=== PATIENT | female | born 1975 | race Caucasian/White ===

== ENCOUNTER 2016-10-05 11:44 | Outpatient (CLI) | payer OTHER | END 2016-10-05 11:45 | disposition home or self-care (01) | DX: Z12.31 Encounter for screening mammogram for malignant neoplasm of breast (principal) ==

== ENCOUNTER 2016-10-19 15:16 | Outpatient (CLI) | payer OTHER | END 2016-10-19 15:17 | disposition home or self-care (01) | DX: N92.0 Excessive and frequent menstruation with regular cycle (principal) ==

== ENCOUNTER 2016-10-22 16:34 | Outpatient (CLI) | payer OTHER ==
[2016-10-22] MEDS ORDERED: IOPAMIDOL-300 100 ML VIAL IVP ONE (18:47)
[2016-10-22] MEDS ORDERED: IOPAMIDOL-300 50 ML VIAL PO ONE (18:47)
== END 2016-10-22 16:35 | disposition home or self-care (01) ==
DX: K58.9 Irritable bowel syndrome, unspecified (principal); R91.1 Solitary pulmonary nodule
CPT/HCPCS: 74177; Q9967

== ENCOUNTER 2017-03-10 16:19 | Outpatient (CLI) | payer OTHER ==
--- NOTE | 2017-03-10 21:16 | MRI Report ---
EXAM: LEFT KNEE MRI WITHOUT CONTRAST EXAM DATE: 03/10/2017 05:14 PM. CLINICAL HISTORY: KNEE PAIN,LEFT. Pressure and difficulty bending left knee, stiffness x 8 month; not improving with time. COMPARISON: None. TECHNIQUE: Multiplanar, multisequence T1-weighted and fluid-sensitive sequences of the knee without c ontrast. Other: None. FINDINGS: Bones: No fractures or subluxations. No marrow edema. No bone lesions. Articular Cartilage: Mild chondromalacia patellae with grade 1-2 degenerative signal mainly in the me dial side. Medial Meniscus: The medial meniscus is intact. Lateral Meniscus: The lateral meniscus is intact. Cruciate Ligaments: The anterior and posterior cruciate ligaments are intact. Collateral Ligaments: The medial collateral and lateral collateral ligamentous structures are intact. Tendons: The quadriceps, patellar, semimembranosus, and popliteus tendons are unremarkable. Musculature: No edema or fatty atrophy. Other: No effusion. No popliteal cyst. No loose bodies. The medial and lateral retinacula, patellofe moral ligaments and iliotibial band are intact. No bursitis. The subcutaneous tissues and fat pads ar e unremarkable. IMPRESSION: 1. Mild chondromalacia patellae. 2. No other MRI abnormalities in the knee. No meniscal or ligamentous tear. [facility] MUSCULOSKELETAL RADIOLOGY SECTION Referring Provider Line: [phone] SITE ID: [id number]
== END 2017-03-10 16:20 | disposition home or self-care (01) ==
LOC: DI 16:19
PROVIDERS: ATTEND Physician Assistant Medical
DX: M25.562 Pain in left knee (principal); M22.42 Chondromalacia patellae, left knee

== ENCOUNTER 2017-05-03 07:25 | Outpatient (CLI) | payer OTHER ==
[2017-05-03 12:39] LABS: BASOPHILS % (AUTO) 0.9 %; EOSINOPHILS # (AUTO) 0.1 10^3/uL (0.0-0.7); EOSINOPHILS % (AUTO) 4.4 %; HGB - HEMOGLOBIN 12.5 g/dL (12.0-16.0); LYMPHOCYTES # (AUTO) 0.8 10^3/uL (1.5-3.5); LYMPHOCYTES % (AUTO) 24.4 %; MEAN CORPUSCULAR HEMOGLOBIN 30.4 pg (27.0-31.0); MEAN CORPUSCULAR HGB CONC 33.9 g/dL (32.0-36.0); MEAN CORPUSCULAR VOLUME 89.8 fL (81.0-99.0); MEAN PLATELET VOLUME 8.7 fL (7.9-10.8); MONOCYTES # (AUTO) 0.3 10^3/uL (0.0-1.0); MONOCYTES % (AUTO) 9.2 %; NEUTROPHILS % (AUTO) 61.1 %; RED BLOOD COUNT 4.12 10^6/uL (4.20-5.40); RED CELL DISTRIBUTION WIDTH 13.3 % (12.0-15.0); UNCORRECTED WHITE BLOOD COUNT 3.3 x10^3/uL; WHITE BLOOD COUNT 3.3 x10^3/uL (4.8-10.8)
[2017-05-03 13:04] LABS: THYROID STIMULATING HORMONE 1.27 uIU/mL (0.34-5.60)
[2017-05-03 13:10] LABS: FERRITIN 9.5 ng/mL (11.0-306.8)
[2017-05-03 14:18] LABS: ALBUMIN/GLOBULIN RATIO 1.2 (1.0-2.2); BILIRUBIN,TOTAL 0.6 mg/dL (0.2-1.0); BUN - BLOOD UREA NITROGEN 19 mg/dL (6-20); CARBON DIOXIDE - CO2 26 mmol/L (21-32); CHLORIDE 103 mmol/L (101-111); CHOL/HDL RATIO 5.9 (<4.4); CHOLESTEROL 306 mg/dL; CREATININE 0.8 mg/dL (0.4-1.0); GFR - MDRD 78 (>89); GLUCOSE 81 mg/dL (70-100); HDL CHOLESTEROL 52 mg/dL; LDL/HDL RATIO 4.5 (<4.4); POTASSIUM 3.8 mmol/L (3.5-5.0); SODIUM 138 mmol/L (135-145); TOTAL PROTEIN 7.4 g/dL (6.7-8.2); TRIGLYCERIDES 110 mg/dL; VLDL CHOLESTEROL 22 mg/dL
== END 2017-05-03 07:26 ==
LOC: LAB.WCP 07:25
PROVIDERS: ATTEND Physician Assistant Medical
DX: Z00.00 Encounter for general adult medical examination without abnormal findings (principal); D64.9 Anemia, unspecified
CPT/HCPCS: 36415; 80050; 80061; 82728

== ENCOUNTER 2017-10-20 11:30 | Outpatient (CLI) | payer OTHER ==
[2017-10-20 19:09] LABS: BASOPHILS % (AUTO) 1.1 %; EOSINOPHILS # (AUTO) 0.1 10^3/uL (0.0-0.7); HGB - HEMOGLOBIN 12.7 g/dL (12.0-16.0); LYMPHOCYTES % (AUTO) 25.9 %; MEAN CORPUSCULAR HEMOGLOBIN 29.9 pg (27.0-31.0); MEAN CORPUSCULAR HGB CONC 33.1 g/dL (32.0-36.0); MEAN CORPUSCULAR VOLUME 90.4 fL (81.0-99.0); MEAN PLATELET VOLUME 9.2 fL (7.9-10.8); MONOCYTES # (AUTO) 0.4 10^3/uL (0.0-1.0); MONOCYTES % (AUTO) 11.3 %; NEUTROPHILS # (AUTO) 2.4 10^3/uL (1.5-6.6); NEUTROPHILS % (AUTO) 59.7 %; PLT - PLATELET COUNT 213 10^3/uL (130-450); RED BLOOD COUNT 4.24 10^6/uL (4.20-5.40); RED CELL DISTRIBUTION WIDTH 13.5 % (12.0-15.0)
[2017-10-20 19:35] LABS: THYROID STIMULATING HORMONE 1.73 uIU/mL (0.34-5.60)
[2017-10-20 19:40] LABS: FERRITIN 10.3 ng/mL (11.0-306.8)
== END 2017-10-20 11:31 | disposition home or self-care (01) ==
LOC: LAB.WCP 11:30
PROVIDERS: ATTEND Physician Assistant Medical
DX: D64.9 Anemia, unspecified (principal); R53.83 Other fatigue
CPT/HCPCS: 36415; 82728; 84443; 85025

== ENCOUNTER 2017-10-20 11:55 | Outpatient (CLI) | payer OTHER ==
--- NOTE | 2017-10-21 11:59 | Mammography Report ---
DIGITAL SCREENING MAMMOGRAM: 10/20/2017 CLINICAL INDICATION: A 42-year-old with history of late childbearing, for screening. COMPARISON: 09/2016, 09/2015, 08/2014, 05/2013. TECHNIQUE: Routine CC and MLO projections were obtained of the breasts. Bilateral laterally exaggerated craniocaudal views. FINDINGS: Parenchymal tissue within both breasts is heterogeneously dense, which may lower the sensitivity of mammography; however, there are no dominant masses, suspicious microcalcifications, or secondary signs of malignancy. In comparison to the previous studies, there are no significant changes. ASSESSMENT: NO MAMMOGRAPHIC EVIDENCE OF MALIGNANCY. NO SIGNIFICANT INTERVAL CHANGES. RECOMMENDATION: Screening mammography is recommended annually. BIRADS category 1 - negative. STANDARD QUALIFYING STATEMENTS: 1. This examination was reviewed with the aid of Computed-Aided Detection (CAD). 2. A negative or benign imaging report should not delay biopsy if clinically suspicious findings are present. Consider surgical consultation if warranted. More than 5% of cancers are not identified by imaging. 3. Dense breasts may obscure an underlying neoplasm. TD: 10/21/2017 11:58
== END 2017-10-20 11:56 | disposition home or self-care (01) ==
LOC: DI.N 11:55
PROVIDERS: ATTEND Physician Assistant Medical
DX: Z12.31 Encounter for screening mammogram for malignant neoplasm of breast (principal)
CPT/HCPCS: 77067

== ENCOUNTER 2018-04-19 08:52 | Outpatient (CLI) | payer OTHER ==
[2018-04-19 12:52] LABS: BASOPHILS % (AUTO) 0.7 %; EOSINOPHILS # (AUTO) 0.1 10^3/uL (0.0-0.7); EOSINOPHILS % (AUTO) 2.1 %; HGB - HEMOGLOBIN 13.3 g/dL (12.0-16.0); LYMPHOCYTES # (AUTO) 0.7 10^3/uL (1.5-3.5); LYMPHOCYTES % (AUTO) 19.9 %; MEAN CORPUSCULAR HEMOGLOBIN 30.6 pg (27.0-31.0); MEAN CORPUSCULAR HGB CONC 33.9 g/dL (32.0-36.0); MEAN CORPUSCULAR VOLUME 90.4 fL (81.0-99.0); MEAN PLATELET VOLUME 8.7 fL (7.9-10.8); MONOCYTES # (AUTO) 0.3 10^3/uL (0.0-1.0); MONOCYTES % (AUTO) 8.6 %; NEUTROPHILS # (AUTO) 2.5 10^3/uL (1.5-6.6); NEUTROPHILS % (AUTO) 68.7 %; PLT - PLATELET COUNT 214 10^3/uL (130-450); RED BLOOD COUNT 4.35 10^6/uL (4.20-5.40); RED CELL DISTRIBUTION WIDTH 13.1 % (12.0-15.0); WHITE BLOOD COUNT 3.7 x10^3/uL (4.8-10.8)
[2018-04-19 13:23] LABS: ALBUMIN 4.4 g/dL (3.2-5.5); ALBUMIN/GLOBULIN RATIO 1.3 (1.0-2.2); ALKALINE PHOSPHATASE 53 IU/L (42-121); ALT ALANINE AMINOTRANSFERASE 15 IU/L (10-60); AST ASPARTATE AMINOTRANSFERASE 18 IU/L (10-42); BILIRUBIN,TOTAL 0.8 mg/dL (0.2-1.0); BUN - BLOOD UREA NITROGEN 15 mg/dL (6-20); CALCIUM 8.9 mg/dL (8.5-10.3); CARBON DIOXIDE - CO2 25 mmol/L (21-32); CHLORIDE 103 mmol/L (101-111); CHOL/HDL RATIO 4.9 (<4.4); CHOLESTEROL 277 mg/dL; CREATININE 0.7 mg/dL (0.4-1.0); GFR - MDRD 90 (>89); GLUCOSE 80 mg/dL (70-100); HDL CHOLESTEROL 57 mg/dL; LDL CHOLESTEROL,CALCULATED 198 mg/dL; LDL/HDL RATIO 3.5 (<4.4); SODIUM 136 mmol/L (135-145); TOTAL PROTEIN 7.9 g/dL (6.7-8.2); VLDL CHOLESTEROL 22 mg/dL
[2018-04-19 13:26] LABS: THYROID STIMULATING HORMONE 1.18 uIU/mL (0.34-5.60)
[2018-04-19 13:31] LABS: FERRITIN 11.1 ng/mL (11.0-306.8)
== END 2018-04-19 08:53 ==
LOC: LAB.WCP 08:52
PROVIDERS: ATTEND Physician Assistant Medical
DX: Z00.00 Encounter for general adult medical examination without abnormal findings (principal); E78.5 Hyperlipidemia, unspecified; D64.9 Anemia, unspecified
CPT/HCPCS: 36415; 80053; 80061; 82728; 83721; 84443; 85025

== ENCOUNTER 2018-06-26 09:40 | Outpatient (CLI) | payer OTHER ==
--- NOTE | 2018-06-26 13:42 | Ultrasound Report ---
Reason: MENORRHAGIA Procedure Date: 06/26/2018 Accession Number: [id number] / [id number] Procedure: US - Pelvic w/Transvaginal CPT Code: FULL RESULT: EXAM: PELVIC ULTRASOUND EXAM DATE: 06/26/2018 10:33 AM. CLINICAL HISTORY: Menorrhagia. COMPARISON: Pelvic w/transvaginal 10/19/2016 3:33 PM. TECHNIQUE: Realtime transabdominal pelvic scan performed to identify the uterus and adnexa and as an overview of other pelvic structures, followed by transvaginal scan to provide greater detail of the uterus and adnexa, with static image documentation. FINDINGS: Uterus: 10.3 x 4.7 x 5.4 cm, volume 136.7 cc. Anteverted position. Normal overall size and echotexture. Masses: Posterior 1.1 cm fibroid posterior right myometrium. Endometrium: 8 mm. Normal. Cervix: Unremarkable. Right Ovary: 2.1 x 1.6 x 2.4 cm, volume 4.2 cc. Normal echotexture. Left Ovary: 2.1 x 1.5 x 1.7 cm, volume 2.8 cc. Normal echotexture. Free Fluid: Trace. Other: None. IMPRESSION: 1. A 1 cm posterior right fundal fibroid. 2. Normal appearance to the endometrium. [facility]
== END 2018-06-26 09:41 | disposition home or self-care (01) ==
LOC: DI 09:40
PROVIDERS: ATTEND Physician Assistant Medical
DX: D25.9 Leiomyoma of uterus, unspecified (principal)
CPT/HCPCS: 76830; 76856

== ENCOUNTER 2018-10-23 08:00 | Outpatient (CLI) | payer OTHER | END 2018-10-23 23:59 | disposition home or self-care (01) | LOC: LAB.R 08:00 | PROVIDERS: ATTEND Family Medicine | DX: R19.7 Diarrhea, unspecified (principal) | CPT/HCPCS: 81599; 83630; 87045; 87046; 87177; 87209; 87329; 87493 ==

== ENCOUNTER 2018-11-10 08:57 | Outpatient (CLI) | payer OTHER ==
--- NOTE | 2018-11-10 10:33 | Mammography Report ---
Reason: SCREENING MAMMO Procedure Date: 11/10/2018 Accession Number: [id number] / [id number] Procedure: MGN - Screening Mammo Dig Bilat CPT Code: FULL RESULT: EXAM: Screening Mammo Dig Bilat DATE: 11/10/2018 9:43 AM CLINICAL HISTORY: Routine screening TECHNIQUE: (B) - Bilateral CC and MLO views were obtained. COMPARISON: 10/20/2017, 10/05/2016, 09/16/2015 and 08/21/2014 PARENCHYMAL PATTERN: (D) - The breasts demonstrate heterogeneously dense fibroglandular parenchyma bilaterally. FINDINGS: There is no significant interval change. There are no suspicious masses, calcifications, or areas of distortion. IMPRESSION: Negative examination. BI-RADS category 1. RECOMMENDATION: (ANNUAL) - Recommend routine annual screening mammography. BI-RADS CATEGORY: (1) - Negative. STANDARD QUALIFYING STATEMENTS: 1. This examination was not reviewed with the aid of Computer-Aided Detection (CAD). 2. A negative or benign imaging report should not preclude biopsy if clinically suspicious findings are present. 3. Dense breasts may obscure an underlying neoplasm. 4. This examination was reviewed without the aid of 3D breast imaging (tomosynthesis).
== END 2018-11-10 08:58 | disposition home or self-care (01) ==
LOC: DI.N 08:57
DX: Z12.31 Encounter for screening mammogram for malignant neoplasm of breast (principal)
CPT/HCPCS: 77067

== ENCOUNTER 2019-04-10 08:39 | Outpatient (CLI) | payer OTHER ==
[2019-04-10] MEDS ORDERED: IOVERSOL 320 100 ML VIAL IVP ONE ×2 (09:01→10:16)
--- NOTE | 2019-04-10 09:51 | CT Report ---
Reason: PULMONARY NODULE Procedure Date: 04/10/2019 Accession Number: [id number] / [id number] Procedure: CT - CHEST W CPT Code: FULL RESULT: EXAM: CT CHEST EXAM DATE: 04/10/2019 09:13 AM. CLINICAL HISTORY: Follow-up right lower lobe pulmonary nodule. COMPARISONS: ABDOMEN/PELVIS W/ 10/22/2016 6:39 PM. TECHNIQUE: Routine helical CT imaging was performed through the chest. IV contrast: None. Reconstructions: Coronal and sagittal. In accordance with CT protocol optimization, one or more of the following dose reduction techniques were utilized for this exam: automated exposure control, adjustment of mA and/or KV based on patient size, or use of iterative reconstructive technique. FINDINGS: Lungs/Pleura: On image 180, series 4 there is an approximate 3 mm diameter lateral segment right middle lobe pulmonary nodule that was not included in the [id number] of the 2017 examination. There has been no change in the 2 mm diameter lateral right lower lobe pulmonary nodule (image 197, series 4); no further follow-up is required for this finding. There is a 5 mm diameter benign-appearing pleural-based noncalcified nodule in the medial basilar left lower lobe that is unchanged compared to 2017. Mediastinum: Normal. No adenopathy or masses. The heart and great vessels are normal. Bones: Unremarkable. Visualized Abdomen: Unremarkable. Other: None. IMPRESSION: 1. No suspicious abnormality. 2. There is a benign-appearing 3 mm maximal diameter lateral segment right middle lobe nodule as described above. 3. No change in 2 mm diameter right lower lobe pulmonary nodule for which no further follow-up is required as per Fleischner Society guidelines. 4. There has been no change in the benign-appearing approximate 5 mm diameter pleural-based medial left lower lobe pulmonary nodule for which no further follow-up is required as per Fleischner Society guidelines. [facility]
== END 2019-04-10 08:40 | disposition home or self-care (01) ==
LOC: DI 08:39
PROVIDERS: ATTEND Physician Assistant Medical
DX: J98.4 Other disorders of lung (principal); R91.8 Other nonspecific abnormal finding of lung field
CPT/HCPCS: 71260; Q9967

== ENCOUNTER 2020-05-16 10:37 | Outpatient (CLI) | payer OTHER ==
--- NOTE | 2020-05-19 16:02 | Mammography Report ---
BILATERAL DIGITAL SCREENING MAMMOGRAM 3D/2D: 05/16/2020 CLINICAL: Routine screening. Comparison is made to exams dated: 01/10/2019 mammogram, 10/20/2017 mammogram, 10/05/2016 mammogram, 09/15 mammogram, 08/21/2014 mammogram, and 05/29/2013 mammogram - [facility]. The t issue of both breasts is heterogeneously dense. This may lower the sensitivity of mammography. No significant masses, calcifications, or other findings are seen in either breast. There has been no significant interval change. IMPRESSION: NEGATIVE There is no mammographic evidence of malignancy. A 1 year screening mammogram is recommended. This exam was interpreted at Station ID: [id number]. NOTE: For mammograms, a report in lay terms will be sent to the patient. Approximately 15% of breast malignancies will not be visualized mammographically. In the management of a palpable breast mass, a negative mammogram must not discourage biopsy of a clinically suspicious lesion. Electronically Signed By: Jonathan Caban M.D. ddp/penrad:05/16/2020 14:34:59 ACR BI-RADS Category 1: Negative 3341F PARENCHYMAL PATTERN: (D) - The breast(s) demonstrate(s) heterogeneously dense fibroglandular tom correa. BI-RADS CATEGORY: (1) - 1 RECOMMENDATION: (ANNUAL) - Recommend routine annual screening mammography. [id number] 1 year screening LATERALITY: (B)
== END 2020-05-16 10:38 | disposition home or self-care (01) ==
LOC: DI.N 10:37
DX: Z12.31 Encounter for screening mammogram for malignant neoplasm of breast (principal)
CPT/HCPCS: 77063; 77067

== ENCOUNTER 2020-05-27 08:15 | Outpatient (CLI) | payer OTHER ==
[2020-05-27] MEDS ORDERED: IOVERSOL 320 100 ML VIAL IVP ONE ×2 (08:27→11:57)
--- NOTE | 2020-05-27 12:03 | CT Report ---
PROCEDURE: CHEST W INDICATIONS: PULMONARY NODULE CONTRAST: IV CONTRAST: Optiray 320 ml: 100 PO CONTRAST: *NO PO CONTRAST TECHNIQUE: After the administration of intravenous contrast, 5 mm thick sections acquired from the pulmonary api dev to the posterior costophrenic angles. 7 mm thick coronal MIP reformats were acquired. For radia tion dose reduction, the following was used: automated exposure control, adjustment of mA and/or kV according to patient size. COMPARISON: CT chest 04/10/2019, CT abdomen pelvis 10/22/2016 FINDINGS: Image quality: Excellent. Lungs and pleura: No acute air space opacities. No pleural effusions or pneumothorax. Central and peripheral airways are patent and normal in caliber. Previously identified nodules, are as follows: Right middle lobe 3 mm series 4 image 158, unchanged compared to 2019. Right lower lobe: 2 mm series 4 image 186, unchanged,compared to 2017 and 2019. Left lower lobe: 5 mm pleural-based medial left lower lobe nodule, series 4 image 202, unchanged comp ared to 2018 and 2016. No new nodules are identified. Mediastinum: Heart size is normal. No pericardial effusion. No mediastinal or hilar adenopathy by size criteria. Thoracic aorta and central pulmonary arteries are normal in size. Esophagus is margarette l in caliber. No hiatal hernia. Bones and chest wall: No suspicious bony lesions. No vertebral body compression fractures. No axil sam or supraclavicular adenopathy by size criteria. Thyroid gland is unremarkable. Abdomen: Visualized upper abdominal solid organs appear normal. Upper abdominal bowel loops are nor mal in caliber. IMPRESSION: 1. Stable subcentimeter pulmonary nodules either compared to 2016and/or 2018. Based on Fleischner cri teria, no additional follow-up is recommended, unless clinically indicated. Reviewed by: Inés Weaver MD on 05/27/2020 12:02 PM PST Approved by: Inés Weaver MD on 05/27/2020 12:02 PM PST Station ID: [id number]
== END 2020-05-27 08:16 | disposition home or self-care (01) ==
LOC: DI 08:15
PROVIDERS: ATTEND Physician Assistant Medical
DX: R91.8 Other nonspecific abnormal finding of lung field (principal)
CPT/HCPCS: 71260; Q9967

== ENCOUNTER 2020-06-13 16:37 | Outpatient (CLI) | payer OTHER ==
[2020-06-13 17:19] LABS: BASOPHILS % (AUTO) 0.4 %; EOSINOPHILS # (AUTO) 0.1 10^3/uL (0.0-0.7); EOSINOPHILS % (AUTO) 1.5 %; LYMPHOCYTES # (AUTO) 1.1 10^3/uL (1.5-3.5); LYMPHOCYTES % (AUTO) 24.8 %; MEAN CORPUSCULAR HEMOGLOBIN 30.8 pg (27.0-31.0); MEAN CORPUSCULAR HGB CONC 33.5 g/dL (32.0-36.0); MEAN PLATELET VOLUME 10.3 fL (7.9-10.8); MONOCYTES # (AUTO) 0.5 10^3/uL (0.0-1.0); MONOCYTES % (AUTO) 10.2 %; NEUTROPHILS # (AUTO) 2.9 10^3/uL (1.5-6.6); NEUTROPHILS % (AUTO) 62.7 %; PLT - PLATELET COUNT 230 10^3/uL (130-450); RED BLOOD COUNT 3.89 10^6/uL (4.20-5.40); RED CELL DISTRIBUTION WIDTH 12.6 % (12.0-15.0); WHITE BLOOD COUNT 4.6 x10^3/uL (4.8-10.8)
[2020-06-13 17:33] LABS: % IRON SATURATION 28 % (20-50); ALBUMIN 4.2 g/dL (3.2-5.5); ALBUMIN/GLOBULIN RATIO 1.4 (1.0-2.2); ALKALINE PHOSPHATASE 50 IU/L (42-121); ALT ALANINE AMINOTRANSFERASE 18 IU/L (10-60); AST ASPARTATE AMINOTRANSFERASE 17 IU/L (10-42); BILIRUBIN,TOTAL 0.7 mg/dL (0.2-1.0); BUN - BLOOD UREA NITROGEN 15 mg/dL (6-20); CARBON DIOXIDE - CO2 25 mmol/L (21-32); CHLORIDE 101 mmol/L (101-111); CHOL/HDL RATIO 5.6 (<4.4); CHOLESTEROL 302 mg/dL; CREATININE 0.8 mg/dL (0.4-1.0); GLUCOSE 87 mg/dL (70-100); HDL CHOLESTEROL 54 mg/dL; IRON 127 ug/dL (28-170); LDL CHOLESTEROL,CALCULATED 237 mg/dL; LDL/HDL RATIO 4.4 (<4.4); SODIUM 137 mmol/L (135-145); TOTAL IRON BINDING CAPACITY 447 ug/dL (250-450); TOTAL PROTEIN 7.3 g/dL (6.7-8.2); TRANSFERRIN 319 mg/dL (192-382); VLDL CHOLESTEROL 11 mg/dL
== END 2020-06-13 16:38 | disposition home or self-care (01) ==
LOC: LAB 16:37
PROVIDERS: ATTEND Physician Assistant Medical
DX: R19.7 Diarrhea, unspecified (principal); E78.5 Hyperlipidemia, unspecified; D64.9 Anemia, unspecified; F32.9 Major depressive disorder, single episode, unspecified; F41.9 Anxiety disorder, unspecified
CPT/HCPCS: 36415; 80053; 80061; 82607; 82728; 83540; 83721; 84443; 84466; 85025

== ENCOUNTER 2020-09-03 07:07 | Outpatient (CLI) | payer OTHER ==
--- NOTE | 2020-09-03 10:50 | Ultrasound Report ---
PROCEDURE: Pelvic w/Transvaginal INDICATIONS: MENORRHAGIA TECHNIQUE: Real-time scanning was performed of the pelvic organs, with image documentation. Additional endovagi nal scanning was necessary due to incomplete visualization of the adnexal and endometrial structures by transabdominal scanning. COMPARISON: None. FINDINGS: No pathologic free abdominal or pelvic fluid. Uterus: Uterus is normal in size at 10.8 x 5.4 x 6.1 cm. Uterus has a heterogeneous echotexture. The re is a left posterior mural fibroid measuring 1.6 x 1.5 x 1.2 cm. The endometrium measures 9.3 mm in combined thickness. Ovaries: Right ovary measures 2.5 x 2.3 x 1.8 cm. It contains a hemorrhagic cyst measuring 1.9 cm in maximum diameter. Left ovary measures 2.8 x 2.5 x 2.2 cm and contains a 1.8 cm cyst. IMPRESSION: 1. Small incidental uterine fibroid. 2. Endometrium is not thickened. Reviewed by: David Cannon MD on 09/03/2020 10:48 AM [facility] Approved by: David Cannon MD on 09/03/2020 10:48 AM PST Station ID: [id number]
== END 2020-09-03 07:08 | disposition home or self-care (01) ==
LOC: DI 07:07
PROVIDERS: ATTEND Physician Assistant Medical
DX: N92.0 Excessive and frequent menstruation with regular cycle (principal); D25.1 Intramural leiomyoma of uterus

== ENCOUNTER 2021-03-09 08:09 | Outpatient (CLI) | payer OTHER | END 2021-03-09 23:59 | disposition home or self-care (01) | LOC: LAB.N 08:09 | PROVIDERS: ATTEND Physician Assistant Medical | DX: R05 Cough (principal); Z20.822 Contact with and (suspected) exposure to COVID-19 ==

== ENCOUNTER 2021-04-13 15:38 | Outpatient (CLI) | payer OTHER ==
--- NOTE | 2021-04-13 19:21 | XRAY Report ---
PROCEDURE: Foot 3 View RT INDICATIONS: CRUSHING INJURY OF R FOOT TECHNIQUE: 3 views of the foot were acquired. COMPARISON: None FINDINGS: Bones: No fractures or dislocations. No suspicious bony lesions. Soft tissues: No tibiotalar joint effusion. Achilles tendon appears normal. IMPRESSION: No acute fracture. No osseous lesion. If symptoms and/or clinical suspicion for pathology continue, f urther assessment with repeat plain films, or advanced imaging (e.g., CT, MRI, or bone scan) is recom mended for further assessment. Reviewed by: Vitaly Rose MD on 04/13/2021 7:20 PM PDT Approved by: Vitaly Rose MD on 04/13/2021 7:20 PM PDT Station ID: [id number]
== END 2021-04-13 15:40 ==
LOC: DI.N 15:38
PROVIDERS: ATTEND Family Medicine
DX: S97.81XA Crushing injury of right foot, initial encounter (principal)

== ENCOUNTER 2021-05-28 09:34 | Outpatient (CLI) | payer OTHER ==
--- NOTE | 2021-05-29 07:52 | Mammography Report ---
BILATERAL DIGITAL SCREENING MAMMOGRAM 3D/2D: 05/28/2021 CLINICAL: Routine screening. Comparison is made to exams dated: 05/16/2020 mammogram, 01/10/2019 mammogram, 10/20/2017 mammogram, 09/09 mammogram, 09/16/2015 mammogram, and 08/21/2014 mammogram - [facility]. The ti ssue of both breasts is heterogeneously dense. This may lower the sensitivity of mammography. No significant masses, calcifications, or other findings are seen in either breast. There has been no significant interval change. IMPRESSION: NEGATIVE There is no mammographic evidence of malignancy. A 1 year screening mammogram is recommended. This exam was interpreted at Station ID: [id number]. NOTE: For mammograms, a report in lay terms will be sent to the patient. Approximately 15% of breast malignancies will not be visualized mammographically. In the management of a palpable breast mass, a negative mammogram must not discourage biopsy of a clinically suspicious lesion. Electronically Signed By: Clive New M.D. atgenie/flash:05/28/2021 12:24:25 ACR BI-RADS Category 1: Negative 3341F PARENCHYMAL PATTERN: (D) - The breast(s) demonstrate(s) heterogeneously dense fibroglandular tom correa. BI-RADS CATEGORY: (1) - 1 RECOMMENDATION: (ANNUAL) - Recommend routine annual screening mammography. [id number] 1 year screening LATERALITY: (B)
== END 2021-05-28 09:35 | disposition home or self-care (01) ==
LOC: DI.N 09:34
DX: Z12.31 Encounter for screening mammogram for malignant neoplasm of breast (principal)

== ENCOUNTER 2021-07-18 08:00 | Outpatient (CLI) | payer OTHER ==
--- NOTE | 2021-07-18 09:52 | XRAY Report ---
PROCEDURE: Elbow 3 View RT INDICATIONS: CONTINUED RIGHT ELBOW PAIN S/P FALL 2 MONTHS AGO TECHNIQUE: 3 views of the elbow were acquired. COMPARISON: None FINDINGS: Bones: No fractures or dislocations. No suspicious bony lesions. Soft tissues: No elbow joint effusion. No suspicious soft tissue calcifications. IMPRESSION: Unremarkable elbow radiographs. Reviewed by: Chava Shaw DO on 07/18/2021 8:51 AM [facility] Approved by: Chava Shaw DO on 07/18/2021 8:51 AM [facility] Station ID: [id number]
== END 2021-07-18 23:59 ==
LOC: DI.N 08:00
PROVIDERS: ATTEND Physician Assistant Medical
DX: S53.491A Other sprain of right elbow, initial encounter (principal)

== ENCOUNTER 2021-07-18 10:01 | Outpatient (CLI) | payer OTHER ==
[2021-07-18 13:41] LABS: BASOPHILS % (AUTO) 0.5 %; EOSINOPHILS # (AUTO) 0.1 10^3/uL (0.0-0.7); EOSINOPHILS % (AUTO) 2.3 %; HCT - HEMATOCRIT 40.5 % (37.0-47.0); HGB - HEMOGLOBIN 13.3 g/dL (12.0-16.0); LYMPHOCYTES # (AUTO) 0.9 10^3/uL (1.5-3.5); LYMPHOCYTES % (AUTO) 21.9 %; MEAN CORPUSCULAR HEMOGLOBIN 30.3 pg (27.0-31.0); MEAN CORPUSCULAR HGB CONC 32.8 g/dL (32.0-36.0); MEAN CORPUSCULAR VOLUME 92.3 fL (81.0-99.0); MEAN PLATELET VOLUME 10.7 fL (7.9-10.8); MONOCYTES # (AUTO) 0.4 10^3/uL (0.0-1.0); MONOCYTES % (AUTO) 9.5 %; NEUTROPHILS # (AUTO) 2.6 10^3/uL (1.5-6.6); NEUTROPHILS % (AUTO) 65.5 %; PLT - PLATELET COUNT 222 10^3/uL (130-450); RED BLOOD COUNT 4.39 10^6/uL (4.20-5.40); RED CELL DISTRIBUTION WIDTH 12.8 % (12.0-15.0); WHITE BLOOD COUNT 3.9 x10^3/uL (4.8-10.8)
[2021-07-18 13:59] LABS: ALBUMIN 4.4 g/dL (3.2-5.5); ALBUMIN/GLOBULIN RATIO 1.4 (1.0-2.2); ALKALINE PHOSPHATASE 47 IU/L (42-121); ALT ALANINE AMINOTRANSFERASE 15 IU/L (10-60); AST ASPARTATE AMINOTRANSFERASE 16 IU/L (10-42); BILIRUBIN,TOTAL 0.8 mg/dL (0.2-1.0); BUN - BLOOD UREA NITROGEN 14 mg/dL (6-20); CALCIUM 9.1 mg/dL (8.5-10.3); CARBON DIOXIDE - CO2 25 mmol/L (21-32); CHLORIDE 101 mmol/L (101-111); CHOL/HDL RATIO 6.6 (<4.4); CHOLESTEROL 349 mg/dL; CREATININE 0.7 mg/dL (0.4-1.0); GFR - MDRD 89 (>89); GLUCOSE 85 mg/dL (70-100); HDL CHOLESTEROL 53 mg/dL; LDL CHOLESTEROL,CALCULATED 276 mg/dL; LDL/HDL RATIO 5.2 (<4.4); POTASSIUM 4.2 mmol/L (3.5-5.0); SODIUM 136 mmol/L (135-145); TOTAL PROTEIN 7.6 g/dL (6.7-8.2); TRIGLYCERIDES 99 mg/dL; VLDL CHOLESTEROL 20 mg/dL
[2021-07-18 14:09] LABS: THYROID STIMULATING HORMONE 1.37 uIU/mL (0.34-5.60)
== END 2021-07-18 10:02 | disposition home or self-care (01) ==
LOC: LAB.N 10:01
PROVIDERS: ATTEND Physician Assistant Medical
DX: Z00.00 Encounter for general adult medical examination without abnormal findings (principal); E78.5 Hyperlipidemia, unspecified; R19.7 Diarrhea, unspecified; D64.9 Anemia, unspecified
CPT/HCPCS: 36415; 80053; 80061; 81599; 83516; 83721; 84443; 85025; 86255

== ENCOUNTER 2021-07-28 10:35 | Outpatient (CLI) | payer OTHER ==
[2021-07-28 18:49] LABS: % IRON SATURATION 29 % (20-50); IRON 135 ug/dL (28-170); TOTAL IRON BINDING CAPACITY 466 ug/dL (250-450); TRANSFERRIN 333 mg/dL (192-382)
== END 2021-07-28 10:36 | disposition home or self-care (01) ==
LOC: LAB.N 10:35
PROVIDERS: ATTEND Physician Assistant Medical
DX: D64.9 Anemia, unspecified (principal)
CPT/HCPCS: 36415; 82728; 83540; 84466

== ENCOUNTER 2021-12-05 11:05 | Outpatient (CLI) | payer OTHER ==
[2021-12-05 19:28] LABS: BASOPHILS % (AUTO) 0.6 %; EOSINOPHILS # (AUTO) 0.1 10^3/uL (0.0-0.7); EOSINOPHILS % (AUTO) 1.7 %; HCT - HEMATOCRIT 40.2 % (37.0-47.0); HGB - HEMOGLOBIN 13.2 g/dL (12.0-16.0); LYMPHOCYTES % (AUTO) 29.4 %; MEAN CORPUSCULAR HGB CONC 32.8 g/dL (32.0-36.0); MEAN CORPUSCULAR VOLUME 91.4 fL (81.0-99.0); MEAN PLATELET VOLUME 10.9 fL (7.9-10.8); MONOCYTES # (AUTO) 0.3 10^3/uL (0.0-1.0); MONOCYTES % (AUTO) 9.8 %; NEUTROPHILS % (AUTO) 58.2 %; PLT - PLATELET COUNT 261 10^3/uL (130-450); WHITE BLOOD COUNT 3.5 x10^3/uL (4.8-10.8)
[2021-12-05 19:46] LABS: ALBUMIN 4.4 g/dL (3.2-5.5); ALBUMIN/GLOBULIN RATIO 1.3 (1.0-2.2); BILIRUBIN,TOTAL 0.4 mg/dL (0.2-1.0); CREATININE 0.8 mg/dL (0.4-1.0); MAGNESIUM 2.2 mg/dL (1.7-2.8); PHOSPHORUS 4.1 mg/dL (2.5-4.6); POTASSIUM 4.2 mmol/L (3.5-5.0); TOTAL PROTEIN 7.8 g/dL (6.7-8.2)
[2021-12-05 20:01] LABS: THYROID STIMULATING HORMONE 1.15 uIU/mL (0.34-5.60)
[2021-12-05 20:07] LABS: FERRITIN 13.8 ng/mL (11.0-306.8)
== END 2021-12-05 11:06 | disposition home or self-care (01) ==
LOC: LAB.N 11:05
PROVIDERS: ATTEND Physician Assistant Medical
DX: R00.2 Palpitations (principal); E55.9 Vitamin D deficiency, unspecified; D64.9 Anemia, unspecified
CPT/HCPCS: 36415; 80053; 82306; 82607; 82728; 83735; 84100; 84443; 85025

== ENCOUNTER 2022-01-07 08:51 | Outpatient (CLI) | payer OTHER ==
--- NOTE | 2022-01-07 14:31 | Ultrasound Report ---
PROCEDURE: Pelvic w/Transvaginal INDICATIONS: UTERINE FIBROIDS TECHNIQUE: Real-time scanning was performed of the pelvic organs, with image documentation. Additional endovagi nal scanning was necessary due to incomplete visualization of the adnexal and endometrial structures by transabdominal scanning. COMPARISON: 09/03/2020. FINDINGS: No pathologic free abdominal or pelvic fluid. Uterus: Uterus is normal in size at 10.5 x 5.4 x 6.8 cm, with a total volume of 201.6 mL there is a right posterior uterine body mural fibroid which currently measures 1.7 x 1.5 x 1.6 cm. This is not significantly changed. The uterus has a heterogeneous echo pattern. The endometrium measures 9.9 mm i n combined thickness. Ovaries: Right ovary measures 2.9 x 2.0 x 1.8 cm with a calculated volume of 5.2 mL. Left ovary carlos ures 3.3 x 2.2 x 2.7 cm with a calculated volume of 10.2 mL. Small physiologic left ovarian cyst carlos uring 2.2 cm maximum diameter. IMPRESSION: Unchanged small uterine fibroid. Reviewed by: David Cannon MD on 01/07/2022 2:29 PM PDT Approved by: David Cannon MD on 01/07/2022 2:29 PM PDT Station ID: [id number]
== END 2022-01-07 08:52 | disposition home or self-care (01) ==
LOC: DI 08:51
PROVIDERS: ATTEND Physician Assistant Medical
DX: D25.9 Leiomyoma of uterus, unspecified (principal)

== ENCOUNTER 2022-01-21 12:49 | Outpatient (CLI) | payer OTHER | END 2022-01-21 12:50 | disposition home or self-care (01) | LOC: MAC.MOP 12:49 | PROVIDERS: ATTEND Physician Assistant Medical | DX: R00.2 Palpitations (principal) | CPT/HCPCS: 93242 ==

== ENCOUNTER 2022-02-03 10:30 | Outpatient (CLI) | payer OTHER | END 2022-02-03 10:31 | disposition home or self-care (01) | LOC: MAC.MOP 10:30 | PROVIDERS: ATTEND Physician Assistant Medical | DX: I47.1 Supraventricular tachycardia (principal); I45.6 Pre-excitation syndrome; I49.8 Other specified cardiac arrhythmias; I49.1 Atrial premature depolarization; I49.3 Ventricular premature depolarization | CPT/HCPCS: 93244 ==

== ENCOUNTER 2022-08-05 15:33 | Outpatient (CLI) | payer OTHER ==
--- NOTE | 2022-08-09 10:18 | Mammography Report ---
BILATERAL DIGITAL SCREENING MAMMOGRAM 3D/2D: 08/05/2022 CLINICAL: Routine screening. Comparison is made to exams dated: 05/28/2021 mammogram, 05/16/2020 mammogram, 01/10/2019 mammogram, 06/2018 mammogram, 10/05/2016 mammogram, and 09/16/2015 mammogram - [facility]. Both breasts are heterogeneously dense, which may obscure small masses (category c / 51-75% glandular tissue). No significant masses, calcifications, or other findings are seen in either breast. There has been no significant interval change. IMPRESSION: NEGATIVE There is no mammographic evidence of malignancy. A 1 year screening mammogram is recommended. Based on the Tyrer Cuzick model (a risk assessment model) the patients lifetime risk is 14.3% and he r 10 year risk is 3.2%. According to the ACR, ACS, and NCCN guidelines, an annual breast MRI exam suzi ng with mammogram is recommended if the patients lifetime risk is 20% or greater. This exam was interpreted at Station ID: [id number]. NOTE: For mammograms, a report in lay terms will be sent to the patient. Approximately 15% of breast malignancies will not be visualized mammographically. In the management of a palpable breast mass, a negative mammogram must not discourage biopsy of a clinically suspicious lesion. Electronically Signed By: Clive New M.D. atgenie/severorad:08/06/2022 15:55:01 ACR BI-RADS Category 1: Negative 3341F PARENCHYMAL PATTERN: (D) - The breast(s) demonstrate(s) heterogeneously dense fibroglandular tom correa. BI-RADS CATEGORY: (1) - 1 RECOMMENDATION: (ANNUAL) - Recommend routine annual screening mammography. [id number] 1 year screening LATERALITY: (B)
== END 2022-08-05 15:34 | disposition home or self-care (01) ==
LOC: DI.N 15:33
DX: Z12.31 Encounter for screening mammogram for malignant neoplasm of breast (principal)

== ENCOUNTER 2022-09-15 18:45 | Emergency (ER) | payer OTHER ==
[2022-09-15 18:58] VITALS: BP 138/76
[2022-09-15] MEDS: MECLIZINE 12.5 MG TABLET PO STA (19:22)
--- NOTE | 2022-09-15 19:23 | ED Physician Documentation ---
History of Present Illness - Stated complaint Stated Complaint: R EAR RINGING/DIZZY - Chief complaint Chief Complaint: Heent - Additonal information Additional information: 47-year-old female presents emergency department for evaluation For evaluation of now what appears to be a chronic tinnitus in her right ear that began spontaneously in March. No fevers falls or trauma. Intermittently since then the tinnitus has come and gone she did follow-up with ENT in [place] and they felt that because the symptoms were not severe and they would just monitor them. This last week the patient was at a conference in [place] and had to ri de an elevator multiple times a day. She reports that everybody on the elevator complained of dizziness when they got off but her symptoms never resolved. Patient reports a history of elevated cholesterol for which she was previously prescribed statin but fearful of taking it. She is concerned she could be having a stroke. No slurred speech, no facial droop. No gait or truncal instability. No vomiting. Review of Systems Constitutional: denies: Fever, Chills Eyes: reports: Reviewed and negative Ears: reports: Tinnitus/ringing Nose: reports: Reviewed and negative Respiratory: reports: Reviewed and negative GI: reports: Reviewed and negative : reports: Reviewed and negative PD PAST MEDICAL HISTORY - Past Medical History Past Medical History: Yes Cardiovascular: Hypertension Respiratory: None Neuro: None Endocrine/Autoimmune: None GI: None BAKERY MANAGER: None : None HEENT: None Psych: None Musculoskeletal: None Derm: None - Past Surgical History Past Surgical History: No - Present Medications Home Medications: Ambulatory Orders Medication Instructions Recorded Confirmed Multivitamin [Fruity Vitamin] 2 each PO DAILY 12/17/13 12/24/13 - Allergies Allergies/Adverse Reactions: Allergies Allergy/AdvReac Type Severity Reaction Status Date / Time sulfamethoxazole Allergy Hives Verified 09/15/22 19:00 [From Bactrim] trimethoprim [From Bactrim] Allergy Hives Verified 09/15/22 19:00 codeine [Codeine] AdvReac Nausea Verified 09/15/22 19:00 metronidazole [From Flagyl] AdvReac Rash Verified 09/15/22 19:00 tioconazole [From Monistat 1] AdvReac Itching Verified 09/15/22 19:00 - Social History Does the pt smoke?: No Smoking Status: Never smoker Does the pt drink ETOH?: No Does the pt have substance abuse?: No - Immunizations Immunizations are current?: Yes - POLST Patient has POLST: No PD ED PE NORMAL - General General: Alert and oriented X 3, No acute distress - HEENT HEENT: Atraumatic, PERRL, Ears normal, Pharynx benign, Dentition benign - Neck Neck: Supple, no meningeal sign, No adenopathy - Cardiac Cardiac: RRR, No murmur - Derm Derm: Normal color, No rash - Neuro Neuro: Alert and oriented X 3, 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 Normal rapid alternating movements. no nystagmus) Eye Opening: Spontaneous Motor: Obeys Commands Verbal: Oriented GCS Score: 15 Results - Vitals Vitals: Vital Signs - 24 hr 09/15/22 09/15/22 18:52 19:13 Temperature 37.2 C Heart Rate 89 Respiratory 20 16 Rate Blood Pressure 138/76 H O2 Saturation 100 Oxygen O2 Source Room air PD Medical Decision Making - ED course Complexity details: considered differential, d/w patient ED course: 47-year-old male presents to the emergency department for evaluation of now chronic tinnitus that began in March. Was present in her right ear. Over the weekend she rode a elevator multiple times and since then has had some dizziness especially 1 trying to fixate on objects or do fine tasks and skills like writing or typing. Exam today was unrevealing. She has normal cerebellar exam. No focal neurodeficits. Given the chronicity of her symptoms and the fact that she is established with ENT she would benefit from prompt outpatient follow-up. Cons ideration should be undertaken for an MRI. Clinically her exam is most consistent with a peripheral vertigo though I did not elicit any nystagmus then a central etiology. She was administered 25 mg of meclizine here in the emergency department. She will monitor her symptoms overnight. If improved she may benefit from further doses as an outpatient. She is discharged home in stable condition with usual emergent return precautions discussed Departure - Departure Disposition: Home, Self Care Clinical Impression: Dizzy spells Tinnitus Qualifiers: Laterality: right Qualified Code(s): H93.11 - Tinnitus, right ear Condition: Stable Record reviewed to determine appropriate education?: Yes Comments: [place] you came to the emergency department because you have been having chronic ringing in your right ear since March but after attending a conference when she rode an elevator multiple times each day you now have increased dizziness. Is importantly follow closely with Dr. Cook your ENT. Given the duration of your symptoms you would benefit from evaluation with an MRI. You are given a dose of meclizine tonight here in the emergency department. I would like you to pay attention overnight to see if it helps improve the sensation of dizziness and ringing in your ears. If it does you can buy this [id number] and take twice daily. If at any point you develop slurred speech, have facial droop, sudden weakness in your arms or legs and you should return immediately to the ER for a second evaluation.
== END 2022-09-15 20:00 | disposition home or self-care (01) ==
LOC: ED 18:45
DX: H93.11 Tinnitus, right ear (principal); R42 Dizziness and giddiness; I10 Essential (primary) hypertension
CPT/HCPCS: 99282; 99284; A9270

== ENCOUNTER 2022-09-24 07:48 | Outpatient (CLI) | payer OTHER ==
[2022-09-24 12:18] LABS: BASOPHILS % (AUTO) 0.6 %; EOSINOPHILS # (AUTO) 0.1 10^3/uL (0.0-0.7); EOSINOPHILS % (AUTO) 1.9 %; HCT - HEMATOCRIT 37.1 % (37.0-47.0); LYMPHOCYTES # (AUTO) 1.1 10^3/uL (1.5-3.5); LYMPHOCYTES % (AUTO) 22.7 %; MEAN CORPUSCULAR HEMOGLOBIN 30.2 pg (27.0-31.0); MEAN CORPUSCULAR HGB CONC 32.3 g/dL (32.0-36.0); MEAN CORPUSCULAR VOLUME 93.2 fL (81.0-99.0); MEAN PLATELET VOLUME 10.8 fL (7.9-10.8); MONOCYTES # (AUTO) 0.5 10^3/uL (0.0-1.0); MONOCYTES % (AUTO) 10.6 %; NEUTROPHILS # (AUTO) 2.9 10^3/uL (1.5-6.6); NEUTROPHILS % (AUTO) 63.8 %; PLT - PLATELET COUNT 234 10^3/uL (130-450); RED BLOOD COUNT 3.98 10^6/uL (4.20-5.40); RED CELL DISTRIBUTION WIDTH 13.2 % (12.0-15.0); WHITE BLOOD COUNT 4.6 x10^3/uL (4.8-10.8)
[2022-09-24 13:10] LABS: ALBUMIN 3.8 g/dL (3.2-5.5); ALBUMIN/GLOBULIN RATIO 1.2 (1.0-2.2); ALKALINE PHOSPHATASE 49 IU/L (42-121); ALT ALANINE AMINOTRANSFERASE 15 IU/L (10-60); AST ASPARTATE AMINOTRANSFERASE 17 IU/L (10-42); BILIRUBIN,TOTAL 0.5 mg/dL (0.2-1.0); BUN - BLOOD UREA NITROGEN 17 mg/dL (6-20); CALCIUM 8.4 mg/dL (8.5-10.3); CARBON DIOXIDE - CO2 24 mmol/L (21-32); CHLORIDE 105 mmol/L (101-111); CHOL/HDL RATIO 5.8 (<4.4); CHOLESTEROL 298 mg/dL; CREATININE 0.7 mg/dL (0.4-1.0); GFR - MDRD 89 (>89); GLUCOSE 83 mg/dL (70-100); HDL CHOLESTEROL 51 mg/dL; LDL CHOLESTEROL,CALCULATED 230 mg/dL; LDL/HDL RATIO 4.5 (<4.4); SODIUM 135 mmol/L (135-145); TOTAL PROTEIN 6.9 g/dL (6.7-8.2); TRIGLYCERIDES 87 mg/dL; VLDL CHOLESTEROL 17 mg/dL
[2022-09-24 13:31] LABS: THYROID STIMULATING HORMONE 1.43 uIU/mL (0.34-5.60)
[2022-09-24 14:06] LABS: % IRON SATURATION 21 % (20-50); IRON 90 ug/dL (28-170); TOTAL IRON BINDING CAPACITY 437 ug/dL (250-450); TRANSFERRIN 312 mg/dL (192-382)
== END 2022-09-24 07:49 | disposition home or self-care (01) ==
LOC: LAB.N 07:48
PROVIDERS: ATTEND Physician Assistant Medical
DX: Z00.00 Encounter for general adult medical examination without abnormal findings (principal); E78.5 Hyperlipidemia, unspecified
CPT/HCPCS: 36415; 80053; 80061; 82728; 83540; 83721; 84443; 84466; 85025

== ENCOUNTER 2022-10-04 15:11 | Outpatient (CLI) | payer OTHER ==
--- NOTE | 2022-10-05 08:30 | Ultrasound Report ---
PROCEDURE: Pelvic w/Transvaginal INDICATIONS: ABNORMAL UTERINE BLEEDING TECHNIQUE: Real-time scanning was performed of the pelvic organs, with image documentation. Additional endovagi nal scanning was necessary due to incomplete visualization of the adnexal and endometrial structures by transabdominal scanning. COMPARISON: None. FINDINGS: Uterus: Uterus is anteverted and normal in size at 10 x 5.2 x 5.9 cm. The myometrium is heterogeneo us. The endometrium measures 4.3 mm in combined thickness. Intramural fibroid along the posterior, right side measuring 1.7 x 1.5 x 1.6 cm. Ovaries: The right ovary measures 2.2 x 1 x 1.6 cm, with a calculated ovarian volume of 2 cc. The l eft ovary measures 2.8 x 1.6 x 1.7 cm, with a calculated ovarian volume of 4 cc. The ovaries have a normal sonographic appearance. Less than 12 follicles can be seen in each ovary. No adnexal masses are seen. Other: No pathologic free abdominal or pelvic fluid. IMPRESSION: Endometrial thickness is 4 mm, within normal limits. Intramural fibroid without submucosal interface measuring 1.7 cm. Reviewed by: Figueroa Dickerson on 10/05/2022 8:29 AM PDT Approved by: Figueroa Dickerson on 10/05/2022 8:29 AM PDT Station ID: [id number]
== END 2022-10-04 15:12 | disposition home or self-care (01) ==
LOC: DI 15:11
PROVIDERS: ATTEND Obstetrics & Gynecology
DX: D25.1 Intramural leiomyoma of uterus (principal)

== ENCOUNTER 2022-10-20 07:31 | Outpatient (CLI) | payer OTHER ==
[2022-10-20 11:50] LABS: BASOPHILS % (AUTO) 0.7 %; EOSINOPHILS # (AUTO) 0.1 10^3/uL (0.0-0.7); EOSINOPHILS % (AUTO) 2.4 %; HCT - HEMATOCRIT 39.9 % (37.0-47.0); LYMPHOCYTES % (AUTO) 23.2 %; MEAN CORPUSCULAR HEMOGLOBIN 30.2 pg (27.0-31.0); MEAN CORPUSCULAR HGB CONC 32.6 g/dL (32.0-36.0); MEAN CORPUSCULAR VOLUME 92.6 fL (81.0-99.0); MEAN PLATELET VOLUME 10.7 fL (7.9-10.8); MONOCYTES # (AUTO) 0.4 10^3/uL (0.0-1.0); MONOCYTES % (AUTO) 8.3 %; NEUTROPHILS # (AUTO) 2.7 10^3/uL (1.5-6.6); NEUTROPHILS % (AUTO) 64.9 %; PLT - PLATELET COUNT 269 10^3/uL (130-450); RED BLOOD COUNT 4.31 10^6/uL (4.20-5.40); RED CELL DISTRIBUTION WIDTH 12.9 % (12.0-15.0); WHITE BLOOD COUNT 4.2 x10^3/uL (4.8-10.8)
== END 2022-10-20 07:32 | disposition home or self-care (01) ==
LOC: LAB.N 07:31
PROVIDERS: ATTEND Obstetrics & Gynecology
DX: Z01.812 Encounter for preprocedural laboratory examination (principal); N93.9 Abnormal uterine and vaginal bleeding, unspecified
CPT/HCPCS: 36415; 85025

== ENCOUNTER 2022-10-26 10:13 | Day surgery (SDC) | payer OTHER ==
[2022-10-26] MEDS ORDERED: fentaNYL 100 MCG/2 ML VIAL ONE ×2 (10:27→12:37)
[2022-10-26] MEDS ORDERED: MIDAZOLAM 2 MG/2 ML VIAL ONE (10:27)
[2022-10-26] MEDS ORDERED: PROPOFOL 200 MG/20 ML VIAL IVP ONE (10:27)
[2022-10-26 10:34] LABS: HCG UR QUAL NEGATIVE
[2022-10-26] MEDS ORDERED: SILVER NITRATE APPLICATOR TOP ONE ×2 (10:36→11:50)
[2022-10-26] MEDS ORDERED: LIDOCAINE MPF 2%-EPI 1:200000 20 ML VIAL ONE (10:36)
[2022-10-26] MEDS ORDERED: BUPIVACAINE 0.25% PF 10 ML VIAL ONE (10:36)
[2022-10-26] MEDS ORDERED: ACETAMINOPHEN 500 MG TABLET PO ONE (10:43)
[2022-10-26] MEDS ORDERED: LACTATED RINGERS 1,000 ML IV ONE ×2 (10:54→12:36)
--- NOTE | 2022-10-26 11:05 | ANESTHESIA ---
Pre-Anesthesia VS, & Labs - Diagnosis abnormal uterine bleeding - Procedure hysterscopy and D&C Vital Signs: Temp Pulse Resp BP Pulse Ox O2 Flow Rate 37.4 C 98 20 144/85 H 97 10/26/22 10:32 10/26/22 10:32 10/26/22 10:32 10/26/22 10:32 10/26/22 10:32 Height: 5 ft 3.5 in Weight (kg): 65 kg Body Mass Index: 25.0 BMI Classification: Overweight - NPO >8 hours - Is Patient ?: No Home Medications and Allergies Home Medications: Ambulatory Orders Cyanocobalamin (Vitamin B-12) [Vitamin B-12] 1,000 mcg PO DAILY 10/19/22 Cyclobenzaprine [Flexeril] 10 mg PO TID PRN 10/19/22 Magnesium Oxide [Mag-Oxide] 200 mg PO DAILY 10/19/22 Nitrofurantoin [Macrobid] 100 mg PO DAILY PRN 10/19/22 Cyanocobalamin (Vitamin B-12) [Vitamin B-12] 1,000 mcg PO DAILY 10/19/22 Cyclobenzaprine [Flexeril] 10 mg PO TID PRN 10/19/22 Magnesium Oxide [Mag-Oxide] 200 mg PO DAILY 10/19/22 Nitrofurantoin [Macrobid] 100 mg PO DAILY PRN 10/19/22 Allergies/Adverse Reactions: Allergies Allergy/AdvReac Type Severity Reaction Status Date / Time sulfamethoxazole Allergy Anaphylaxis Verified 10/19/22 09:36 [From Bactrim] trimethoprim [From Bactrim] Allergy Anaphylaxis Verified 10/19/22 09:36 codeine [Codeine] AdvReac Nausea Verified 09/15/22 19:00 Anes History & Medical History - Anesthetic History Anesthesia Complications: reports: Slow wake-up - Medical History Cardiovascular: reports: High cholesterol Pulmonary: reports: None Gastrointestinal: reports: Other Urinary: reports: Chronic bladder infection Neuro: reports: None Musculoskeletal: reports: Fibromyalgia Endocrine/Autoimmune: reports: HyPERthyroidism (post , now resolved) Blood Disorders: reports: None Skin: reports: Eczema, Rosacea Smoking Status: Never smoker Psychosocial: reports: No issues indicated History of Cancer?: No - Surgical History General: reports: EGD Eyes Ears Nose Throat (EENT): reports: Tonsil/Adenoidectomy Gynecologic: reports: Dilation and currettage, Other Exam General: Alert, Oriented x3, Cooperative, No acute distress Dental: WNL Mouth Openin Fingerbreadth Neck Mobility: Normal Mallampati classification: II Thyromental Distance: 4-6 cm Mental/Cognitive Status: Alert/Oriented X3, Normal for patient Plan Anesthesia Type: General, Total IV Consent for Procedure(s) Verified and Reviewed: Yes Code Status: Attempt Resuscitation ASA classification: 2-Mild systemic disease Is this case an emergency?: No
[2022-10-26] MEDS ORDERED: ATROPINE ABBOJECT 1 MG/10 ML SYRINGE IVP PRN (11:08)
[2022-10-26] MEDS ORDERED: fentaNYL 100 MCG/2 ML VIAL IVP PRN (11:08)
[2022-10-26] MEDS ORDERED: MORPHINE 2 MG/ML CARPUJECT IVP PRN (11:08)
[2022-10-26] MEDS ORDERED: HYDROmorphone 0.5 MG/0.5 ML SYRINGE IVP PRN (11:08)
[2022-10-26] MEDS ORDERED: ONDANSETRON 4 MG/2 ML VIAL IVP PRN (11:08)
[2022-10-26] MEDS ORDERED: NALOXONE 0.4 MG/ML VIAL IVP PRN (11:08)
[2022-10-26] MEDS ORDERED: LEVONORGESTREL 20 MCG/24H IUD IY ONE (11:10)
[2022-10-26] MEDS ORDERED: PROPOFOL 500 MG/50 ML 500 MG/50 ML VIAL ONE (11:34)
[2022-10-26] MEDS ORDERED: BUPIVACAINE 0.5% PF 10 ML VIAL IM ONE ×2 (11:50)
[2022-10-26] MEDS ORDERED: LACTATED RINGERS 1,000 ML IV SCH (12:00)
[2022-10-26] MEDS ORDERED: KETOROLAC 30 MG/ML VIAL ONE (12:29)
[2022-10-26] MEDS ORDERED: ONDANSETRON 4 MG/2 ML VIAL ONE (12:29)
[2022-10-26] MEDS ORDERED: HYDROcod/ACETAM 5/325 MG TABLET PO PRN (12:29)
--- NOTE | 2022-10-26 12:35 | OPERATIVE REPORT ---
Operative Report - General Procedure Date: 10/16/22 Planned Procedure: Hysteroscopy with Dilation and curettage with possible MyoSure Pre-Op Diagnosis: Abnormal uterine bleeding Procedure Performed: Hysteroscopy, dilation curettage Post Op Diagnosis: Abnormal uterine bleeding - Procedure Note Primary Surgeon: Josh Harris MD Secondary Surgeon: Hali Solis DO Anesthesia Provider: Lora Bateman CRNA Anesthesia Technique: Other (IV general) Pathology: Endometrial curettings IV Fluids (mL): 1,000 Estimated Blood Loss (mL): 25 Complications: None - Other Other Information/Narrative: Prior to the procedure, patient was counseled the risk, benefits, alternatives of hysteroscopy D&C. We discussed endometrial sampling the office, but patient did not feel she could tolerate this. We discussed risk of infection, perforation, bleeding. Patient agreed to proceed with surgery. She did place 200 mcg of misoprostol vaginally last night prior to the procedure. Patient was taken to the procedure room and placed in dorsal lithotomy position. Hibiclens was used to clean the operative area. Langdon speculum was palced in the vagina and the cervix was visualized. The anterior lip the cervix was grasped with a single-tooth tenaculum. The cervix was difficult to dilate and as I could not find a tract, I called Dr. Solis to come assist in dilation. We repositioned the tenaculum to the posterior cervix and made more attempts to dilate. After finding the tract of the cervix which was very anteverted and up to the patient's left, the cervix allowed the passage of dilators. Hysteroscope was then used to hydrodilate using normal saline distention media. Hysteroscope was advanced without difficulty using hydrodistention. Cervical canal was noted to have no lesions. Upon entry into the internal cervical os there was noted to be proliferative endometrium within the uterus. No significant polyps or fibroids were noted. Bilateral tubal ostia were noted. Hysteroscope was then removed. Sharp curette was then performed although due to the angle of the uterus, it was somewhat difficult, although a moderate mount of tissue was removed. Tenaculum was then removed from the cervix noted to be hemostatic. All instruments removed from the vagina Fluid deficit 325.
--- NOTE | 2022-10-26 13:05 | ANESTHESIA POST OP EVALUATION ---
Anesthesia Post Eval - Post Anesthesia Eval Vitals: Last Vital Signs Temp 37 C 10/26/22 12:36 Pulse 82 10/26/22 12:52 Resp 15 10/26/22 12:52 BP 93/75 10/26/22 12:52 Pulse Ox 97 10/26/22 12:52 O2 Flow Rate CV Function Including HR & BP: Stable Pain Control: Satisfactory Nausea & Vomiting: Negative Mental Status: Baseline Respiratory Status: Airway Patent Hydration Status: Satisfactory Anesthesia Complications: None
[2022-10-26 13:32] VITALS: BP 116/67
== END 2022-10-26 10:14 | disposition home or self-care (01) ==
LOC: SDS 10:13
PROVIDERS: ATTEND Obstetrics & Gynecology
PROC: 0UDB8ZZ Extraction of Endometrium, Via Natural or Artificial Opening Endoscopic (ICD-10-PCS; principal; 2022-10-26 11:30)
DX: N93.9 Abnormal uterine and vaginal bleeding, unspecified (principal)
CPT/HCPCS: 58558; 81025; A9270; J7120

== ENCOUNTER 2023-03-03 07:52 | Day surgery (SDC) | payer OTHER ==
[2023-03-03] MEDS ORDERED: LACTATED RINGERS 1,000 ML IV ONE ×2 (07:55→09:57)
[2023-03-03 08:16] VITALS: O2SAT 100
[2023-03-03 09:12] LABS: HCG UR QUAL NEGATIVE
--- NOTE | 2023-03-03 09:13 | ANESTHESIA ---
Pre-Anesthesia VS, & Labs - Diagnosis screening - Procedure colonoscopy Vital Signs: Temp Pulse Resp BP Pulse Ox O2 Flow Rate 36.5 C 94 18 119/85 H 100 03/03/23 07:55 03/03/23 07:55 03/03/23 07:55 03/03/23 07:55 03/03/23 07:55 Height: 5 ft 3 in Weight (kg): 62 kg Body Mass Index: 24.2 BMI Classification: Normal - NPO >8 hours - Is Patient ?: No - Lab Results Lab results reviewed: Yes Home Medications and Allergies Cyanocobalamin (Vitamin B-12) [Vitamin B-12] 1,000 mcg PO DAILY 10/19/22 Cyclobenzaprine [Flexeril] 10 mg PO TID PRN 10/19/22 Magnesium Oxide [Mag-Oxide] 200 mg PO DAILY 10/19/22 Nitrofurantoin [Macrobid] 100 mg PO DAILY PRN 10/19/22 Allergies/Adverse Reactions: Allergies Allergy/AdvReac Type Severity Reaction Status Date / Time sulfamethoxazole Allergy Anaphylaxis Verified 03/02/23 13:32 [From Bactrim] trimethoprim [From Bactrim] Allergy Anaphylaxis Verified 03/02/23 13:32 codeine [Codeine] AdvReac Nausea Verified 03/02/23 13:32 Anes History & Medical History - Anesthetic History Anesthesia Complications: reports: Post-Operative Nausea/Vomiting Family history of Anesthesia Complications: Denies Family history of Malignant Hyperthermia: Denies - Medical History Cardiovascular: reports: High cholesterol Pulmonary: reports: None Gastrointestinal: reports: None, Other Urinary: reports: None, Chronic bladder infection Neuro: reports: None Musculoskeletal: reports: Fibromyalgia Endocrine/Autoimmune: reports: HyPERthyroidism (hx) Blood Disorders: reports: None Skin: reports: Eczema, Rosacea Smoking Status: Never smoker - Surgical History General: reports: EGD Eyes Ears Nose Throat (EENT): reports: Tonsil/Adenoidectomy Gynecologic: reports: Dilation and currettage, Other Exam General: Alert, Oriented x3, Cooperative Dental: WNL Mouth Openin Fingerbreadth Neck Mobility: Normal Mallampati classification: II Thyromental Distance: 4-6 cm Respiratory: Lungs clear Cardiovascular: Regular rate Plan Anesthesia Type: General, MAC Consent for Procedure(s) Verified and Reviewed: Yes Code Status: Attempt Resuscitation ASA classification: 2-Mild systemic disease Is this case an emergency?: No
--- NOTE | 2023-03-03 09:22 | HISTORY & PHYSICAL EXAMINATION ---
Chief Complaint - Chief Complaint Chief Complaint: here for colonoscopy History of Present Illness - History Obtained From Records Reviewed: yes History obtained from: pt Exam Limitations: none - History of Present Illness HPI Comment/Other: here for colon cancer screening. no problems. 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 : reports: None, Chronic bladder infection HEENT: reports: Chronic hearing loss, Other Psych: reports: None Musculoskeletal: reports: Fibromyalgia Derm: reports: Eczema, Rosacea MRSA Hx?: No - Past Surgical History General: reports: EGD /BUILDING CODE INSPECTOR: reports: Dilation and currettage, Other HEENT: reports: Tonsil/Adenoidectomy - POLST Patient has POLST: No Meds/Allgy - Home Medications Home Medications: Ambulatory Orders Medication Instructions Recorded Confirmed Cyanocobalamin (Vitamin B-12) 1,000 mcg PO DAILY 10/19/22 03/02/23 [Vitamin B-12] Cyclobenzaprine [Flexeril] 10 mg PO TID PRN 10/19/22 03/02/23 Magnesium Oxide [Mag-Oxide] 200 mg PO DAILY 10/19/22 03/02/23 Nitrofurantoin [Macrobid] 100 mg PO DAILY PRN 10/19/22 03/02/23 Ibuprofen [Motrin] 800 mg PO Q6H PRN #30 tab 10/26/22 03/02/23 - Allergies Allergies/Adverse Reactions: Allergies Allergy/AdvReac Type Severity Reaction Status Date / Time sulfamethoxazole Allergy Anaphylaxis Verified 03/02/23 13:32 [From Bactrim] trimethoprim [From Bactrim] Allergy Anaphylaxis Verified 03/02/23 13:32 codeine [Codeine] AdvReac Nausea Verified 03/02/23 13:32 Review of Systems - Other Findings Other Findings: 10 pt ros as above otherwise unremarkable Exam - Vital Signs Vital Signs: Vital Signs x48h Temp Pulse Resp BP Pulse Ox 03/03/23 07:55 36.5 C 94 18 119/85 H 100 - Physical Exam General Appearance: positive: No acute distress, Alert Eyes Bilateral: positive: PERRL, EOMI ENT: positive: No signs of dehydration Neck: positive: No JVD, Trachea midline Respiratory: positive: No respiratory distress Cardiovascular: positive: Regular rate & rhythm Abdomen: positive: No distention Neurologic/Psychiatric: positive: Oriented x3 Conclusion/Plan - Problem List (1) Colon cancer screening Conclusion/Plan: plan colonoscopy. parq held and consent obtained - Lab Results Lab results reviewed: Yes
[2023-03-03 10:24] VITALS: BP 124/78
== END 2023-03-03 07:53 | disposition home or self-care (01) ==
LOC: SDS 07:52
PROVIDERS: ATTEND Surgery
DX: Z12.11 Encounter for screening for malignant neoplasm of colon (principal); Z32.02 Encounter for pregnancy test, result negative
CPT/HCPCS: 45378; 81025; J7120

== ENCOUNTER 2023-08-19 07:36 | Outpatient (CLI) | payer OTHER ==
[2023-08-19 12:23] LABS: EOSINOPHILS # (AUTO) 0.1 10^3/uL (0.0-0.7); EOSINOPHILS % (AUTO) 3.2 %; HCT - HEMATOCRIT 39.4 % (37.0-47.0); HGB - HEMOGLOBIN 12.6 g/dL (12.0-16.0); LYMPHOCYTES % (AUTO) 25.5 %; MEAN CORPUSCULAR HEMOGLOBIN 29.6 pg (27.0-31.0); MEAN CORPUSCULAR VOLUME 92.7 fL (81.0-99.0); MEAN PLATELET VOLUME 10.7 fL (7.9-10.8); MONOCYTES # (AUTO) 0.4 10^3/uL (0.0-1.0); MONOCYTES % (AUTO) 10.3 %; NEUTROPHILS # (AUTO) 2.4 10^3/uL (1.5-6.6); NEUTROPHILS % (AUTO) 59.8 %; PLT - PLATELET COUNT 253 10^3/uL (130-450); RED BLOOD COUNT 4.25 10^6/uL (4.20-5.40); WHITE BLOOD COUNT 4.1 x10^3/uL (4.8-10.8)
[2023-08-19 12:39] LABS: ALBUMIN/GLOBULIN RATIO 1.4 (1.0-2.2); ALKALINE PHOSPHATASE 48 IU/L (42-121); ALT ALANINE AMINOTRANSFERASE 17 IU/L (10-60); AST ASPARTATE AMINOTRANSFERASE 15 IU/L (10-42); BILIRUBIN,TOTAL 0.4 mg/dL (0.2-1.0); BUN - BLOOD UREA NITROGEN 16 mg/dL (6-20); CARBON DIOXIDE - CO2 27 mmol/L (21-32); CHLORIDE 106 mmol/L (101-111); CHOL/HDL RATIO 5.9 (<4.4); CHOLESTEROL 271 mg/dL; CREATININE 0.9 mg/dL (0.6-1.3); GFR - MDRD 66 (>89); GLUCOSE 89 mg/dL (74-104); HDL CHOLESTEROL 46 mg/dL; LDL CHOLESTEROL,CALCULATED 200 mg/dL; LDL/HDL RATIO 4.3 (<4.4); POTASSIUM 4.2 mmol/L (3.5-4.5); SODIUM 138 mmol/L (135-145); TOTAL PROTEIN 6.8 g/dL (6.4-8.9); TRIGLYCERIDES 124 mg/dL (48-352); VLDL CHOLESTEROL 25 mg/dL
[2023-08-19 12:51] LABS: THYROID STIMULATING HORMONE 1.74 uIU/mL (0.34-5.60)
== END 2023-08-19 07:37 | disposition home or self-care (01) ==
LOC: LAB.N 07:36
PROVIDERS: ATTEND Physician Assistant Medical
DX: Z00.00 Encounter for general adult medical examination without abnormal findings (principal); D64.9 Anemia, unspecified; N93.9 Abnormal uterine and vaginal bleeding, unspecified
CPT/HCPCS: 36415; 80053; 80061; 82728; 83001; 83721; 84443; 85025

== ENCOUNTER 2023-10-25 07:22 | Outpatient (CLI) | payer OTHER ==
[2023-10-25 11:53] LABS: EOSINOPHILS # (AUTO) 0.1 10^3/uL (0.0-0.7); EOSINOPHILS % (AUTO) 2.6 %; HCT - HEMATOCRIT 40.2 % (37.0-47.0); HGB - HEMOGLOBIN 13.3 g/dL (12.0-16.0); LYMPHOCYTES # (AUTO) 1.1 10^3/uL (1.5-3.5); LYMPHOCYTES % (AUTO) 26.2 %; MEAN CORPUSCULAR HEMOGLOBIN 30.3 pg (27.0-31.0); MEAN CORPUSCULAR HGB CONC 33.1 g/dL (32.0-36.0); MEAN CORPUSCULAR VOLUME 91.6 fL (81.0-99.0); MEAN PLATELET VOLUME 10.5 fL (7.9-10.8); MONOCYTES # (AUTO) 0.5 10^3/uL (0.0-1.0); NEUTROPHILS # (AUTO) 2.5 10^3/uL (1.5-6.6); PLT - PLATELET COUNT 255 10^3/uL (130-450); RED BLOOD COUNT 4.39 10^6/uL (4.20-5.40); RED CELL DISTRIBUTION WIDTH 12.7 % (12.0-15.0); WHITE BLOOD COUNT 4.2 x10^3/uL (4.8-10.8)
[2023-10-25 12:12] LABS: ALBUMIN 4.2 g/dL (3.2-5.5); ALBUMIN/GLOBULIN RATIO 1.3 (1.0-2.2); ALKALINE PHOSPHATASE 50 IU/L (42-121); ALT ALANINE AMINOTRANSFERASE 10 IU/L (10-60); AST ASPARTATE AMINOTRANSFERASE 12 IU/L (10-42); BILIRUBIN,TOTAL 0.5 mg/dL (0.2-1.0); BUN - BLOOD UREA NITROGEN 18 mg/dL (6-20); CALCIUM 9.3 mg/dL (8.5-10.3); CARBON DIOXIDE - CO2 25 mmol/L (21-32); CHLORIDE 105 mmol/L (101-111); CHOL/HDL RATIO 5.4 (<4.4); CHOLESTEROL 276 mg/dL; CREATININE 0.9 mg/dL (0.6-1.3); GFR - MDRD 66 (>89); GLUCOSE 85 mg/dL (74-104); HDL CHOLESTEROL 51 mg/dL; LDL CHOLESTEROL,CALCULATED 203 mg/dL; POTASSIUM 4.2 mmol/L (3.5-4.5); SODIUM 136 mmol/L (135-145); TOTAL PROTEIN 7.4 g/dL (6.4-8.9); TRIGLYCERIDES 112 mg/dL (48-352); VLDL CHOLESTEROL 22 mg/dL
== END 2023-10-25 07:23 | disposition home or self-care (01) ==
LOC: LAB.N 07:22
PROVIDERS: ATTEND Physician Assistant Medical
DX: E78.5 Hyperlipidemia, unspecified (principal); R25.2 Cramp and spasm; Z79.899 Other long term (current) drug therapy
CPT/HCPCS: 36415; 80053; 80061; 83721; 85025

== ENCOUNTER 2023-11-03 07:49 | Outpatient (CLI) | payer OTHER ==
--- NOTE | 2023-11-04 08:07 | Mammography Report ---
BILATERAL DIGITAL SCREENING MAMMOGRAM 3D/2D: 11/03/2023 CLINICAL: Routine screening. Comparison is made to exams dated: 08/05/2022 mammogram, 05/28/2021 mammogram, 05/16/2020 mammogram, mammogram, 10/20/2017 mammogram, and 10/05/2016 mammogram - [facility]. Both breasts are heterogeneously dense, which may obscure small masses (category c / 51-75% glandular tissue). No significant masses, calcifications, or other findings are seen in either breast. There has been no significant interval change. IMPRESSION: NEGATIVE There is no mammographic evidence of malignancy. A 1 year screening mammogram is recommended. Based on the Tyrer Cuzick model (a risk assessment model) the patient's lifetime risk is 14.6% and he r 10 year risk is 3.5%. According to the ACR, ACS, and NCCN guidelines, an annual breast MRI exam uszi ng with mammogram is recommended if the patient's lifetime risk is 20% or greater. This exam was interpreted at Station ID: [id number]. NOTE: For mammograms, a report in lay terms will be sent to the patient. Approximately 15% of breast malignancies will not be visualized mammographically. In the management of a palpable breast mass, a negative mammogram must not discourage biopsy of a clinically suspicious lesion. Electronically Signed By: Finesse still/flash:11/03/2023 09:01:50 letter sent: No_Letter ACR BI-RADS Category 1: Negative 3341F PARENCHYMAL PATTERN: (D) - The breast(s) demonstrate(s) heterogeneously dense fibroglandular tom correa. BI-RADS CATEGORY: (1) - 1 RECOMMENDATION: (ANNUAL) - Recommend routine annual screening mammography. [id number] 1 year screening LATERALITY: (B)
== END 2023-11-03 07:50 | disposition home or self-care (01) ==
LOC: DI.N 07:49
DX: Z12.31 Encounter for screening mammogram for malignant neoplasm of breast (principal); R92.333 Mammographic heterogeneous density, bilateral breasts

== ENCOUNTER 2023-12-12 07:47 | Outpatient (CLI) | payer OTHER ==
--- NOTE | 2023-12-12 18:02 | CT Report ---
PROCEDURE: CT heart coronary calcium scoring without contrast TECHNIQUE: MDCT non-contrast cardiac gated images were obtained from the rios through the inferior margin of the heart. Calcium score was obtained by post-processing with external software. Automated exposure control was used to reduce patient radiation dose. INDICATION: CAD screening, low or intermediate risk COMPARISON: None FINDINGS: Image quality: Diagnostic Agatston method: Total calcium score: 247 L main: 58 LAD: 65 LCX: 0 RCA: 124 Heart findings: Mitral annular calcifications: No significant calcifications. Aortic valve: No significant valvular calcifications. Chambers: No significant enlargement on this non-dynamic study. Pericardium: No effusion. Other findings (note the chest is incompletely imaged on this limited non-contrast study): Lungs and pleura: No pleural effusion. No actionable lung nodules. Mediastinum: No pathologic lymphadenopathy. Upper abdomen: Partially seen, unremarkable. Bones: No acute or suspicious abnormality. IMPRESSION: Coronary calcium scores as above. Incidentals: None significant. Coronary artery calcium scores have been identified as an independent risk factor for future acute co ronary syndromes and correlate with the quantity of coronary atherosclerotic plaque. However, they do not correlate directly with the degree of stenosis. A low score does not exclude a significant coron [place] artery stenosis. Risk of future coronary events should be assessed with individual patient risk factors and medical hi story. Consider correlation with risk percentiles using the LI (Multi-Ethnic Study of Atheroscleros is) calculator. CAC-DRS Categories: A0: 0, very low risk, consider repeat coronary calcium study every 3-7 years for surveillance. A1: 1-99, mildly increased risk, consider moderate-intensity statin A2: 100-299: moderately increased risk, consider moderate to high-intensity statin + ASA 81mg A3: >300: moderately to severely increased risk, consider high-intensity statin + ASA 81mg Reviewed by: Finesse Pena MD on 12/12/2023 6:01 PM PDT Approved by: Finesse Pena MD on 12/12/2023 6:01 PM PDT Station ID: [id number]
== END 2023-12-12 07:48 | disposition home or self-care (01) ==
LOC: DI 07:47
PROVIDERS: ATTEND Physician Assistant Medical
DX: E78.5 Hyperlipidemia, unspecified (principal)

== ENCOUNTER 2024-02-29 08:21 | Outpatient (CLI) | payer OTHER ==
[2024-02-29 17:03] LABS: BILIRUBIN,URINE NEGATIVE (NEGATIVE); GLUCOSE, URINE (UA) NEGATIVE (NEGATIVE); KETONES,URINE (UA) NEGATIVE (NEGATIVE); LEUKOCYTE ESTERASE, URINE NEGATIVE (NEGATIVE); NITRITE,URINE NEGATIVE (NEGATIVE); OCCULT BLOOD,URINE NEGATIVE (NEGATIVE); PH,URINE 6.5 PH (5.0-7.5); PROTEIN,URINE NEGATIVE (NEGATIVE); UROBILINOGEN,URINE 0.2 (NORMAL) E.U./dL (NORMAL)
[2024-02-29 17:06] LABS: CLARITY,URINE CLEAR (CLEAR)
[2024-02-29 17:18] LABS: BACTERIA,URINE Few /HPF (None Seen); RBC,URINE None Seen /HPF (0-5); SQUAMOUS EPITHELIAL CELL,UR FEW Squamous (<= Few); WBC,URINE 0-3 /HPF (0-5)
[2024-02-29 21:51] LABS: BACTERIAL VAGINOSIS DNA NEGATIVE (NEGATIVE); CANDIDA GLABRATA DNA NEGATIVE (NEGATIVE); CANDIDA GROUP DNA NEGATIVE (NEGATIVE); CANDIDA KRUSEI DNA NEGATIVE (NEGATIVE); TRICHOMONAS VAGINALIS DNA NEGATIVE (NEGATIVE)
== END 2024-02-29 23:59 | disposition home or self-care (01) ==
LOC: LAB.WC 08:21
PROVIDERS: ATTEND Obstetrics & Gynecology
DX: R10.2 Pelvic and perineal pain (principal)
CPT/HCPCS: 81001; 81514; 87086

== ENCOUNTER 2024-03-13 07:26 | Outpatient (CLI) | payer OTHER ==
[2024-03-13 07:51] LABS: ALBUMIN 3.9 g/dL (3.2-5.5); ALBUMIN/GLOBULIN RATIO 1.3 (1.0-2.2); ALKALINE PHOSPHATASE 55 IU/L (42-121); ALT ALANINE AMINOTRANSFERASE 14 IU/L (10-60); AST ASPARTATE AMINOTRANSFERASE 14 IU/L (10-42); BILIRUBIN,TOTAL 0.3 mg/dL (0.2-1.0); BUN - BLOOD UREA NITROGEN 12 mg/dL (6-20); CALCIUM 8.6 mg/dL (8.5-10.3); CARBON DIOXIDE - CO2 29 mmol/L (21-32); CHLORIDE 106 mmol/L (101-111); CHOLESTEROL 211 mg/dL; CREATININE 0.8 mg/dL (0.6-1.3); GFR - MDRD 76 (>89); GLUCOSE 92 mg/dL (74-104); HDL CHOLESTEROL 53 mg/dL; LDL CHOLESTEROL,CALCULATED 136 mg/dL; LDL/HDL RATIO 2.6 (<4.4); SODIUM 139 mmol/L (135-145); TOTAL PROTEIN 6.8 g/dL (6.4-8.9); TRIGLYCERIDES 111 mg/dL; VLDL CHOLESTEROL 22 mg/dL
== END 2024-03-13 07:27 | disposition home or self-care (01) ==
LOC: LAB 07:26
PROVIDERS: ATTEND Physician Assistant Medical
DX: E78.5 Hyperlipidemia, unspecified (principal)
CPT/HCPCS: 36415; 80053; 80061; 83721